=== PATIENT | female | born 1950 | race Asian ===

== ENCOUNTER → 2017-12-24 10:00 | Outpatient (CLI) | payer MEDICARE, OTHER, SELFPAY ==
[2017-12-24 10:30] LABS: Hematocrit 34.1 % (36-46); Hemoglobin 11.9 g/dL (12.0-16.0); Mean Corpuscular HGB Conc 34.8 % (30-36); Mean Corpuscular Hemoglobin 32.5 PG (26-34); Mean Corpuscular Volume 93.2 fL (80-100); Platelet Count 165 X10^3/uL (150-400); Red Blood Cell Count 3.65 X10^6/uL (4.0-5.2); Red Cell Distribution Width 16.4 % (11.6-14.8)
[2017-12-24 10:37] LABS: Add Manual Diff / Slide Review YES; White Blood Cell Count 1.8 X10^3/uL (4.5-11.0)
[2017-12-24 10:39] LABS: Alanine Aminotransferase 54 IU/L (9-52); Albumin 3.9 g/dL (3.5-5.0); Albumin Globulin Ratio 1.6 (1.0-2.8); Alkaline Phosphatase 47 U/L (38-126); Aspartate Aminotransferase 31 IU/L (14-36); BUN Creatinine Ratio 28.3 (6-22); Bilirubin Total 0.8 mg/dL (0.2-1.3); Calcium 9.1 mg/dL (8.4-10.2); Estimated Glomerular Filt Rate > 60.0 mL/min (>60); Globulin 2.5 g/dL (1.7-4.1); Glucose 152 mg/dL (80-110); HEMOLYSIS < 15 (0-50); Potassium 4.1 mmol/L (3.4-5.1); Sodium 136 mmol/L (137-145); Total Protein 6.4 g/dL (6.3-8.2)
[2017-12-24 11:09] LABS: Neutrophils Absolute Manual 1008 /uL (3000-5900); Total Cells Counted 50
[2017-12-24 11:10] LABS: Anisocytosis 1+; Ovalocytes 1+; Toxic Granulation Present
== END ==
PROVIDERS: PCP Internal Medicine; Visit Provider Internal Medicine Hematology & Oncology
DX: C71.9 Malignant neoplasm of brain, unspecified (principal)
CPT/HCPCS: 36415; 80053; 85025

== ENCOUNTER → 2017-12-31 10:57 | Outpatient (CLI) | payer MEDICARE, OTHER, SELFPAY ==
[2017-12-31 11:19] LABS: Add Manual Diff / Slide Review NO; Basophils Percent Auto 1.1 % (0-2); Eosinophils Percent Auto 0.2 % (2-4); Hematocrit 32.6 % (36-46); Hemoglobin 11.4 g/dL (12.0-16.0); Lymphocytes Percent Auto 23.6 % (25-40); Mean Corpuscular HGB Conc 34.9 % (30-36); Mean Corpuscular Hemoglobin 32.5 PG (26-34); Mean Corpuscular Volume 93.3 fL (80-100); Monocytes Percent Auto 12.9 % (3-14); Neutrophils Absolute Auto 2300 /uL (3000-5900); Neutrophils Percent Auto 62.2 % (50-75); Platelet Count 232 X10^3/uL (150-400); Red Blood Cell Count 3.49 X10^6/uL (4.0-5.2); Red Cell Distribution Width 17.6 % (11.6-14.8); White Blood Cell Count 3.6 X10^3/uL (4.5-11.0)
[2017-12-31 11:30] LABS: Alanine Aminotransferase 46 IU/L (9-52); Albumin 3.8 g/dL (3.5-5.0); Albumin Globulin Ratio 1.5 (1.0-2.8); Alkaline Phosphatase 42 U/L (38-126); Aspartate Aminotransferase 22 IU/L (14-36); Bilirubin Total 0.6 mg/dL (0.2-1.3); Calcium 9.2 mg/dL (8.4-10.2); Estimated Glomerular Filt Rate > 60.0 mL/min (>60); Globulin 2.6 g/dL (1.7-4.1); Glucose 125 mg/dL (80-110); HEMOLYSIS 17 (0-50); Potassium 4.2 mmol/L (3.4-5.1); Sodium 138 mmol/L (137-145); Total Protein 6.4 g/dL (6.3-8.2)
== END ==
PROVIDERS: Family Provider Internal Medicine; PCP Internal Medicine; Visit Provider Internal Medicine Hematology & Oncology
DX: C71.9 Malignant neoplasm of brain, unspecified (principal)
CPT/HCPCS: 36415; 80053; 85025

== ENCOUNTER → 2018-01-22 14:46 | Outpatient (CLI) | payer MEDICARE, OTHER, SELFPAY ==
[2018-01-22 15:03] LABS: Add Manual Diff / Slide Review NO; Basophils Percent Auto 0.5 % (0-2); Hematocrit 32.6 % (36-46); Lymphocytes Percent Auto 8.5 % (25-40); Mean Corpuscular HGB Conc 33.9 % (30-36); Mean Corpuscular Hemoglobin 32.5 PG (26-34); Mean Corpuscular Volume 95.9 fL (80-100); Monocytes Percent Auto 3.5 % (3-14); Neutrophils Absolute Auto 4500 /uL (3000-5900); Neutrophils Percent Auto 87.5 % (50-75); Platelet Count 282 X10^3/uL (150-400); Red Cell Distribution Width 17.8 % (11.6-14.8); White Blood Cell Count 5.2 X10^3/uL (4.5-11.0)
[2018-01-22 15:13] LABS: Alanine Aminotransferase 29 IU/L (9-52); Albumin 3.8 g/dL (3.5-5.0); Albumin Globulin Ratio 1.5 (1.0-2.8); Alkaline Phosphatase 47 U/L (38-126); Aspartate Aminotransferase 19 IU/L (14-36); BUN Creatinine Ratio 26.7 (6-22); Bilirubin Total 0.7 mg/dL (0.2-1.3); Blood Urea Nitrogen 16 mg/dL (7-17); Carbon Dioxide 30 mmol/L (22-32); Chloride 101 mmol/L (98-107); Estimated Glomerular Filt Rate > 60.0 mL/min (>60); Globulin 2.6 g/dL (1.7-4.1); Glucose 263 mg/dL (80-110); HEMOLYSIS < 15 (0-50); Potassium 4.5 mmol/L (3.4-5.1); Sodium 138 mmol/L (137-145); Total Protein 6.4 g/dL (6.3-8.2)
== END ==
PROVIDERS: Family Provider Internal Medicine; PCP Internal Medicine; Visit Provider Internal Medicine Hematology & Oncology
DX: C71.9 Malignant neoplasm of brain, unspecified (principal)
CPT/HCPCS: 36415; 80053; 85025

== ENCOUNTER 2018-02-02 14:30 | Outpatient (RCR) | payer MEDICARE, OTHER, SELFPAY ==
--- NOTE | 2018-01-01 08:45 | PT.OIE ---
Current Diagnoses Other abnormalities of gait and mobility (12/30/17) Dizziness and giddiness (12/30/17) Weakness (12/30/17) Provider Visit Care Team Role Provider Type Darby Barlow MD Attending Provider Physician Family Provider Primary Care Provider Specialty: Internal Medicine Address: [address] [place] [address], [id number] Email: Physical Therapy Initial Evaluation PT-OP-A Visit Information Start: 12/31/17 07:18 Freq: Status: Active Protocol: Document 12/30/17 14:30 AMB (Rec: 12/31/17 07:25 AMB [email or web address]) Out-Patient Physical Therapy Visit Information Visit Information Visit Type Initial Evaluation Visit Start Time 14:30 Visit Stop Time 15:30 Total Visit Minutes 60 Visit Number 1 Evaluation Information Evaluation Date 12/30/17 PT-OP-B Current Condition Start: 12/31/17 07:18 Freq: Status: Active Protocol: Document 12/30/17 14:30 AMB (Rec: 12/31/17 16:03 AMB [email or web address]) Current Condition History of Current Condition Onset Date 2017 Current Complaints Dizziness, L UE and LE numbness and weakness History of Current Condition The patient speaks Mandarin and attends PT with her . Phone interpreting for part of the session. 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 Since then she has had left sided numbness and weakness. She had dizziness before the brain tumor resection. She is currently on chemo to shrink the rest of the tumor. Personal Factors Other Personal Factors That May Effect Mandarin speaking only. Therapy/Recovery PT-OP-C Subjective Start: 12/31/17 07:18 Freq: Status: Active Protocol: Document 12/30/17 14:30 AMB (Rec: 12/31/17 16:03 AMB [email or web address]) OP-PT Subjective Patient Comments Patient Comments The patient denies pain, after extensive questioning she describes the dizziness as not spinning or lightheaded, but feeling wavy when she moves from sit to stand or when she is walking. Movement brings on the dizziness, turning her head or sitting up from bed can bring it on. R hand dominant. No falls in the last 6 months. The numbness is worst in the hand with fingers 3-5 being the most numb. Patient Questionnaires ABC- Activity Specific Balance Confidence Scale ABC Score 86 ABC Functional Impairment 1 to <20% Impaired (Score 81- 99) Dizziness Handicap Inventory DHI Score 20 DHI Functional Impairment 20 to 39% Impaired (Score 20- 39) PT-OP-D Balance Start: 12/31/17 07:18 Freq: Status: Active Protocol: Document 12/30/17 14:30 AMB (Rec: 12/31/17 16:11 AMB [email or web address]) Balance Tests Single Limb Standing Single Limb- Right unable Single Limb- Left unable Semi-Tandem Standing Semi-Tandem Standing Balance dizziness increased with eyes closed and headturns, but able to perform PT-OP-G Mobility & Gait Start: 12/31/17 07:18 Freq: Status: Active Protocol: Document 12/30/17 14:30 AMB (Rec: 12/31/17 16:09 AMB [email or web address]) OP Gait Assessment Comments Gait Comments The patient ambulates without AD. Good step length, but slightly WBOS and generally careful with movement. PT-OP-M Strength Start: 12/31/17 07:18 Freq: Status: Active Protocol: Document 12/30/17 14:30 AMB (Rec: 12/31/17 16:08 AMB [email or web address]) Hand Mobile Paramedical Examiner/Pinch Strength Hand Dominance Hand Dominance Right Hand Strength Right Mobile Paramedical Examiner (lbs) 50 Left Mobile Paramedical Examiner (lbs) 30 Hip Strength Hip Manual Muscle Testing Left Flexion (L2) 4 Good Extension (S1) 4 Good Abduction 4 Good Right Flexion (L2) 5 Normal Extension (S1) 5 Normal Abduction 5 Normal Knee Strength Knee Manual Muscle Testing Left Flexion (S2) 4 Good Extension (L3) 4 Good Right Flexion (S2) 4+ Good+ Extension (L3) 5 Normal Ankle/Foot Strength Ankle and Foot Manual Muscle Testing Left Dorsiflexion (L4) 4- Good- Plantarflexion (S1) 3+ Fair+ Right Dorsiflexion (L4) 4+ Good+ Plantarflexion (S1) 4+ Good+ PT-OP-O Vestibular Start: 12/31/17 07:18 Freq: Status: Active Protocol: Document 12/30/17 14:30 AMB (Rec: 12/31/17 07:29 AMB [email or web address]) Vestibular Assessment Visual Testing Smooth Pursuits Horizontal WFL Gaze Evoked Nystagmus With Fixation Negative Thrust Head Negative Positional Testing Dolores-Hallpike Negative Left Negative Right PT-OP-Q Treatments Start: 12/31/17 07:18 Freq: Status: Active Protocol: Document 12/30/17 14:30 AMB (Rec: 12/31/17 07:27 AMB [email or web address]) Therapeutic Exercises Supine Exercises 1 Supine Exercise Name SLR Reps/Minutes 10 Sitting Exercises 1 Sitting Exercise Name theraputty Side left Neuro Re-Education Treatment Balance Activities 1 Details stride stance EC Surface smooth Equipment corner Reps/Duration 30 seconds PT-OP-T Assessment and Plan Start: 12/31/17 07:18 Freq: Status: Active Protocol: Document 12/30/17 14:30 AMB (Rec: 12/31/17 16:16 AMB [email or web address]) Physical Therapy Assessment Rehab Potential Rehabilitation Potential Good Evaluation Complexity Number of Personal Factors/Comorbidities 1-2 Number of Body Systems Impaired 4 or More Clinical Presentation at Evaluation Evolving Impairments Impairments Balance Functional Mobility Gait Sensation Strength Goals 2 Impairment Weakness Short Term Goal (STG) The patient will show improved inpatient coder strength to 40# on her L hand. STG Duration 4 weeks Credit Collections Clerk Goal (LTG) The patient will show improved strength by lifting 15# from the floor to waist height with good body mechanics. LTG Duration 8 weeks 1 Impairment Dizziness Short Term Goal (STG) The patient will move from sit to stand without dizziness. STG Duration 4 weeks Credit Collections Clerk Goal (LTG) The patient will stand on one leg for 5 seconds without LOB. LTG Duration 8 weeks Assessment Summary Assessment The patient presents with left sided weakness and numbness which contribute to her feeling of being off balance during transfers and gait. She is hoping to strengthen her left side and be more confident with her balance. Her feeling of numbness plays a role in her impaired balance . Physical Therapy Plan Frequency and Duration Frequency of Treatment 1x/Week Duration of Treatment 8 weeks Plan of Care Start Date 12/30/17 Plan of Care End Date 02/25/18 Therapeutic Interventions Therapeutic Interventions Aquatic Therapy Balance Training Gait Training Home Exercise Program Manual Therapy Neuromuscular Re-education Self-Care/Home Management Therapeutic Activities Therapeutic Exercises Modalities Electric Stimulation Provider Signature Date
--- NOTE | 2018-01-01 08:46 | PT.OPPOC ---
Current Diagnoses Other abnormalities of gait and mobility (12/30/17) Dizziness and giddiness (12/30/17) Weakness (12/30/17) Provider Visit Care Team Role Provider Type Darby Barlow MD Attending Provider Physician Family Provider Primary Care Provider Specialty: Internal Medicine Address: [address] [place] [address], [facility] Email: Plan Of Care PT-OP-T Assessment and Plan Start: 12/31/17 07:18 Freq: Status: Active Protocol: Document 12/30/17 14:30 AMB (Rec: 12/31/17 16:16 AMB [email or web address]) Physical Therapy Assessment Rehab Potential Rehabilitation Potential Good Evaluation Complexity Number of Personal Factors/Comorbidities 1-2 Number of Body Systems Impaired 4 or More Clinical Presentation at Evaluation Evolving Impairments Impairments Balance Functional Mobility Gait Sensation Strength Goals 2 Impairment Weakness Short Term Goal (STG) The patient will show improved education consultant strength to 40# on her L hand. STG Duration 4 weeks Intermediate Goal (LTG) The patient will show improved strength by lifting 15# from the floor to waist height with good body mechanics. LTG Duration 8 weeks 1 Impairment Dizziness Short Term Goal (STG) The patient will move from sit to stand without dizziness. STG Duration 4 weeks Intermediate Goal (LTG) The patient will stand on one leg for 5 seconds without LOB. LTG Duration 8 weeks Assessment Summary Assessment The patient presents with left sided weakness and numbness which contribute to her feeling of being off balance during transfers and gait. She is hoping to strengthen her left side and be more confident with her balance. Her feeling of numbness plays a role in her impaired balance . Physical Therapy Plan Frequency and Duration Frequency of Treatment 1x/Week Duration of Treatment 8 weeks Plan of Care Start Date 12/30/17 Plan of Care End Date 02/25/18 Therapeutic Interventions Therapeutic Interventions Aquatic Therapy Balance Training Gait Training Home Exercise Program Manual Therapy Neuromuscular Re-education Self-Care/Home Management Therapeutic Activities Therapeutic Exercises Modalities Electric Stimulation Plan of Care Dates Plan of Care Start Date 12/30/17 Plan of Care End Date 02/25/18 Please Sign and Return: I have reviewed this Plan of Care and certify that the skilled therapy services above are required to meet the patient???s needs. Physician Signature Date Printed Name and Credentials
--- NOTE | 2018-01-21 07:17 | PT.OTN ---
Current Diagnoses Other abnormalities of gait and mobility (01/20/18) Dizziness and giddiness (01/20/18) Weakness (01/20/18) Physical Therapy Treatment Note PT-OP-A Visit Information Start: 12/31/17 07:18 Freq: Status: Active Protocol: Document 01/20/18 13:45 AMB (Rec: 01/20/18 16:16 AMB [email or web address]) Out-Patient Physical Therapy Visit Information Visit Information Visit Type Treatment Note Visit Start Time 14:00 Visit Stop Time 14:30 Total Visit Minutes 30 Visit Number 2 Evaluation Information Evaluation Date 12/30/17 PT-OP-B Current Condition Start: 12/31/17 07:18 Freq: Status: Active Protocol: Document 12/30/17 14:30 AMB (Rec: 12/31/17 16:03 AMB [email or web address]) Current Condition History of Current Condition Onset Date 2016 Current Complaints Dizziness, L UE and LE numbness and weakness History of Current Condition The patient speaks Mandarin and attends PT with her . Phone interpreting for part of the session. 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 Since then she has had left sided numbness and weakness. She had dizziness before the brain tumor resection. She is currently on chemo to shrink the rest of the tumor. Personal Factors Other Personal Factors That May Effect Mandarin speaking only. Therapy/Recovery PT-OP-C Subjective Start: 12/31/17 07:18 Freq: Status: Active Protocol: Document 01/20/18 13:45 AMB (Rec: 01/20/18 16:16 AMB [email or web address]) OP-PT Subjective Patient Comments Patient Comments The patient reports she has been doing her exercises. She continues to have a weak and numb left side. PT-OP-D Balance Start: 12/31/17 07:18 Freq: Status: Active Protocol: Document 12/30/17 14:30 AMB (Rec: 12/31/17 16:11 AMB [email or web address]) Balance Tests Single Limb Standing Single Limb- Right unable Single Limb- Left unable Semi-Tandem Standing Semi-Tandem Standing Balance dizziness increased with eyes closed and headturns, but able to perform PT-OP-G Mobility & Gait Start: 12/31/17 07:18 Freq: Status: Active Protocol: Document 12/30/17 14:30 AMB (Rec: 12/31/17 16:09 AMB [email or web address]) OP Gait Assessment Comments Gait Comments The patient ambulates without AD. Good step length, but slightly WBOS and generally careful with movement. PT-OP-M Strength Start: 12/31/17 07:18 Freq: Status: Active Protocol: Document 12/30/17 14:30 AMB (Rec: 12/31/17 16:08 AMB [email or web address]) Hand Electron Microscopist/Pinch Strength Hand Dominance Hand Dominance Right Hand Strength Right Electron Microscopist (lbs) 50 Left Electron Microscopist (lbs) 30 Hip Strength Hip Manual Muscle Testing Left Flexion (L2) 4 Good Extension (S1) 4 Good Abduction 4 Good Right Flexion (L2) 5 Normal Extension (S1) 5 Normal Abduction 5 Normal Knee Strength Knee Manual Muscle Testing Left Flexion (S2) 4 Good Extension (L3) 4 Good Right Flexion (S2) 4+ Good+ Extension (L3) 5 Normal Ankle/Foot Strength Ankle and Foot Manual Muscle Testing Left Dorsiflexion (L4) 4- Good- Plantarflexion (S1) 3+ Fair+ Right Dorsiflexion (L4) 4+ Good+ Plantarflexion (S1) 4+ Good+ PT-OP-O Vestibular Start: 12/31/17 07:18 Freq: Status: Active Protocol: Document 12/30/17 14:30 AMB (Rec: 12/31/17 07:29 AMB [email or web address]) Vestibular Assessment Visual Testing Smooth Pursuits Horizontal WFL Gaze Evoked Nystagmus With Fixation Negative Thrust Head Negative Positional Testing Dolores-Hallpike Negative Left Negative Right PT-OP-Q Treatments Start: 12/31/17 07:18 Freq: Status: Active Protocol: Document 01/20/18 13:45 AMB (Rec: 01/21/18 07:17 AMB [email or web address]) Therapeutic Exercises Supine Exercises 2 Supine Exercise Name air bike Reps/Minutes 30x2 1 Supine Exercise Name SLR Reps/Minutes 10 Sitting Exercises 2 Sitting Exercise Name bicep curl Resistance #3 theraband Standing Exercises 2 Standing Exercise Name lunges Reps/Minutes 2x10 Comments forward 1 Standing Exercise Name wall squat Reps/Minutes 15 x5 Neuro Re-Education Treatment Balance Activities 1 Details stride stance EC Surface smooth Equipment corner Reps/Duration 30 seconds PT-OP-T Assessment and Plan Start: 12/31/17 07:18 Freq: Status: Active Protocol: Document 01/20/18 13:45 AMB (Rec: 01/20/18 16:18 AMB [email or web address]) Physical Therapy Assessment Assessment Summary Assessment Pt habitually uses her R leg more with squats, needed physical and verbal cues for even weightbearing. Physical Therapy Plan Next Visit Focus/Plan Next Note Type Treatment Note Next Visit Plan Progress balance, UE strengthening HEP Please Sign and Return: I have reviewed this Plan of Care and certify that the skilled therapy services above are required to meet the patient?s needs. Physician Signature Date Printed Name and Credentials Clinical Instructor Signature Printed Name and Credentials
--- NOTE | 2018-01-27 14:54 | PT.OTN ---
Current Diagnoses Other abnormalities of gait and mobility (01/27/18) Dizziness and giddiness (01/27/18) Weakness (01/27/18) Physical Therapy Treatment Note PT-OP-A Visit Information Start: 12/31/17 07:18 Freq: Status: Active Protocol: Document 01/27/18 13:45 AMB (Rec: 01/27/18 14:51 AMB [email or web address]) Out-Patient Physical Therapy Visit Information Visit Information Visit Type Treatment Note Visit Start Time 14:00 Visit Stop Time 14:30 Total Visit Minutes 30 Visit Number 2 Evaluation Information Evaluation Date 12/30/17 PT-OP-B Current Condition Start: 12/31/17 07:18 Freq: Status: Active Protocol: Document 12/30/17 14:30 AMB (Rec: 12/31/17 16:03 AMB [email or web address]) Current Condition History of Current Condition Onset Date 2016 Current Complaints Dizziness, L UE and LE numbness and weakness History of Current Condition The patient speaks Mandarin and attends PT with her . Phone interpreting for part of the session. 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 Since then she has had left sided numbness and weakness. She had dizziness before the brain tumor resection. She is currently on chemo to shrink the rest of the tumor. Personal Factors Other Personal Factors That May Effect Mandarin speaking only. Therapy/Recovery PT-OP-C Subjective Start: 12/31/17 07:18 Freq: Status: Active Protocol: Document 01/27/18 13:45 AMB (Rec: 01/27/18 14:51 AMB [email or web address]) OP-PT Subjective Patient Comments Patient Comments The patient reports anterior hip pain on the left with walking, it has been a problem for awhile now (months). PT-OP-D Balance Start: 12/31/17 07:18 Freq: Status: Active Protocol: Document 12/30/17 14:30 AMB (Rec: 12/31/17 16:11 AMB [email or web address]) Balance Tests Single Limb Standing Single Limb- Right unable Single Limb- Left unable Semi-Tandem Standing Semi-Tandem Standing Balance dizziness increased with eyes closed and headturns, but able to perform PT-OP-G Mobility & Gait Start: 12/31/17 07:18 Freq: Status: Active Protocol: Document 12/30/17 14:30 AMB (Rec: 12/31/17 16:09 AMB [email or web address]) OP Gait Assessment Comments Gait Comments The patient ambulates without AD. Good step length, but slightly WBOS and generally careful with movement. PT-OP-M Strength Start: 12/31/17 07:18 Freq: Status: Active Protocol: Document 12/30/17 14:30 AMB (Rec: 12/31/17 16:08 AMB [email or web address]) Hand Truck Loader Overhead Crane/Pinch Strength Hand Dominance Hand Dominance Right Hand Strength Right Truck Loader Overhead Crane (lbs) 50 Left Truck Loader Overhead Crane (lbs) 30 Hip Strength Hip Manual Muscle Testing Left Flexion (L2) 4 Good Extension (S1) 4 Good Abduction 4 Good Right Flexion (L2) 5 Normal Extension (S1) 5 Normal Abduction 5 Normal Knee Strength Knee Manual Muscle Testing Left Flexion (S2) 4 Good Extension (L3) 4 Good Right Flexion (S2) 4+ Good+ Extension (L3) 5 Normal Ankle/Foot Strength Ankle and Foot Manual Muscle Testing Left Dorsiflexion (L4) 4- Good- Plantarflexion (S1) 3+ Fair+ Right Dorsiflexion (L4) 4+ Good+ Plantarflexion (S1) 4+ Good+ PT-OP-O Vestibular Start: 12/31/17 07:18 Freq: Status: Active Protocol: Document 12/30/17 14:30 AMB (Rec: 12/31/17 07:29 AMB [email or web address]) Vestibular Assessment Visual Testing Smooth Pursuits Horizontal WFL Gaze Evoked Nystagmus With Fixation Negative Thrust Head Negative Positional Testing Dolores-Hallpike Negative Left Negative Right PT-OP-Q Treatments Start: 12/31/17 07:18 Freq: Status: Active Protocol: Document 01/27/18 13:45 AMB (Rec: 01/27/18 14:51 AMB [email or web address]) Gym Equipment Therapeutic Ball 1 Exercise Details Seated march, LAQ, alternating UE flex Ball Size/Color 65 cm Comments Hernan for balance Therapeutic Exercises Supine Exercises 4 Supine Exercise Name IT band stretch Reps/Minutes 30x4 3 Supine Exercise Name hip flexor stretch Reps/Minutes 30x4 Prone Exercises 2 Prone Exercise Name quadruped hip/UE ext alternating Reps/Minutes 10 1 Prone Exercise Name quadruped hip extension Reps/Minutes 10 PT-OP-T Assessment and Plan Start: 12/31/17 07:18 Freq: Status: Active Protocol: Document 01/27/18 13:45 AMB (Rec: 01/27/18 14:51 AMB [email or web address]) Physical Therapy Assessment Goals 2 Impairment Weakness Short Term Goal (STG) The patient will show improved quality assurance supervisor body strength to 40# on her L hand. STG Duration 4 weeks Nitrate Operator Goal (LTG) The patient will show improved strength by lifting 15# from the floor to waist height with good body mechanics. LTG Duration 8 weeks 1 Impairment Dizziness Short Term Goal (STG) The patient will move from sit to stand without dizziness. STG Duration 4 weeks [facility] Goal (LTG) The patient will stand on one leg for 5 seconds without LOB. LTG Duration 8 weeks Assessment Summary Assessment Pt educated in hip flexor and possible stretches, she was very hesitant with seated ball exercises. Physical Therapy Plan Frequency and Duration Frequency of Treatment 1x/Week Duration of Treatment 8 weeks Plan of Care Start Date 12/30/17 Plan of Care End Date 02/25/18 Next Visit Focus/Plan Next Note Type Progress Note Next Visit Plan Progress balance, follow up on hip pain Please Sign and Return: I have reviewed this Plan of Care and certify that the skilled therapy services above are required to meet the patient?s needs. Physician Signature Date Printed Name and Credentials Clinical Instructor Signature Printed Name and Credentials
--- NOTE | 2018-02-03 09:22 | PT.OTN ---
Current Diagnoses Other abnormalities of gait and mobility (02/02/18) Dizziness and giddiness (02/02/18) Weakness (02/02/18) Physical Therapy Treatment Note PT-OP-A Visit Information Start: 12/31/17 07:18 Freq: Status: Active Protocol: Document 02/02/18 14:30 AMB (Rec: 02/03/18 07:37 AMB [id number]) Out-Patient Physical Therapy Visit Information Visit Information Visit Type Treatment Note Visit Start Time 14:30 Visit Stop Time 15:15 Total Visit Minutes 45 Visit Number 4 Evaluation Information Evaluation Date 12/30/17 PT-OP-B Current Condition Start: 12/31/17 07:18 Freq: Status: Active Protocol: Document 12/30/17 14:30 AMB (Rec: 12/31/17 16:03 AMB [email or web address]) Current Condition History of Current Condition Onset Date 2016 Current Complaints Dizziness, L UE and LE numbness and weakness History of Current Condition The patient speaks Mandarin and attends PT with her . Phone interpreting for part of the session. 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 Since then she has had left sided numbness and weakness. She had dizziness before the brain tumor resection. She is currently on chemo to shrink the rest of the tumor. Personal Factors Other Personal Factors That May Effect Mandarin speaking only. Therapy/Recovery PT-OP-C Subjective Start: 12/31/17 07:18 Freq: Status: Active Protocol: Document 02/02/18 14:30 AMB (Rec: 02/03/18 07:37 AMB [id number]) OP-PT Subjective Patient Comments Patient Comments The patient reports, through her , that she has been doing her exercises. PT-OP-D Balance Start: 12/31/17 07:18 Freq: Status: Active Protocol: Document 12/30/17 14:30 AMB (Rec: 12/31/17 16:11 AMB [email or web address]) Balance Tests Single Limb Standing Single Limb- Right unable Single Limb- Left unable Semi-Tandem Standing Semi-Tandem Standing Balance dizziness increased with eyes closed and headturns, but able to perform PT-OP-G Mobility & Gait Start: 12/31/17 07:18 Freq: Status: Active Protocol: Document 12/30/17 14:30 AMB (Rec: 12/31/17 16:09 AMB [email or web address]) OP Gait Assessment Comments Gait Comments The patient ambulates without AD. Good step length, but slightly WBOS and generally careful with movement. PT-OP-M Strength Start: 12/31/17 07:18 Freq: Status: Active Protocol: Document 12/30/17 14:30 AMB (Rec: 12/31/17 16:08 AMB [email or web address]) Hand Wildlife Protector/Pinch Strength Hand Dominance Hand Dominance Right Hand Strength Right Wildlife Protector (lbs) 50 Left Wildlife Protector (lbs) 30 Hip Strength Hip Manual Muscle Testing Left Flexion (L2) 4 Good Extension (S1) 4 Good Abduction 4 Good Right Flexion (L2) 5 Normal Extension (S1) 5 Normal Abduction 5 Normal Knee Strength Knee Manual Muscle Testing Left Flexion (S2) 4 Good Extension (L3) 4 Good Right Flexion (S2) 4+ Good+ Extension (L3) 5 Normal Ankle/Foot Strength Ankle and Foot Manual Muscle Testing Left Dorsiflexion (L4) 4- Good- Plantarflexion (S1) 3+ Fair+ Right Dorsiflexion (L4) 4+ Good+ Plantarflexion (S1) 4+ Good+ PT-OP-O Vestibular Start: 12/31/17 07:18 Freq: Status: Active Protocol: Document 12/30/17 14:30 AMB (Rec: 12/31/17 07:29 AMB [email or web address]) Vestibular Assessment Visual Testing Smooth Pursuits Horizontal WFL Gaze Evoked Nystagmus With Fixation Negative Thrust Head Negative Positional Testing Dolores-Hallpike Negative Left Negative Right PT-OP-Q Treatments Start: 12/31/17 07:18 Freq: Status: Active Protocol: Document 02/02/18 14:30 AMB (Rec: 02/03/18 09:20 AMB [email or web address]) Therapeutic Exercises Supine Exercises 3 Supine Exercise Name hip flexor stretch Reps/Minutes 30x4 1 Supine Exercise Name SLR Reps/Minutes 10 Sitting Exercises 3 Sitting Exercise Name cross body stretch 2 Sitting Exercise Name tricep extension Resistance #3 theraband Standing Exercises 2 Standing Exercise Name lunges Reps/Minutes 2x10 Comments forward Manual Therapy Treatment Soft Tissue Mobilization 1 Body Location L hip flexor Mobilization Type Sustained Pressure Neuro Re-Education Treatment Balance Activities 3 Details NBOS HT EO 2 Details foam NBOS Comments EO 1 Details stride stance EC Surface smooth Equipment corner Reps/Duration 30 seconds Vestibular Rehabilitation X1 Viewing Background plain Distance From Target arm length Speed slow Position NBOS, stride stance PT-OP-T Assessment and Plan Start: 12/31/17 07:18 Freq: Status: Active Protocol: Document 02/02/18 14:30 AMB (Rec: 02/03/18 09:20 AMB [email or web address]) Physical Therapy Assessment Goals 2 Impairment Weakness Short Term Goal (STG) The patient will show improved law tutor strength to 40# on her L hand. NOT MET STG Duration 4 weeks Long-Term Goal (LTG) The patient will show improved strength by lifting 15# from the floor to waist height with good body mechanics. MET LTG Duration 8 weeks 1 Impairment Dizziness Short Term Goal (STG) The patient will move from sit to stand without dizziness. PARTIALLy MET STG Duration 4 weeks Long-Term Goal (LTG) The patient will stand on one leg for 5 seconds without LOB. NOT MET LTG Duration 8 weeks Assessment Summary Assessment The patient continues to have dizziness, head turns do make this more apparent and she and her were instructed in a program to strengthen her left side and improve her baseline strength. Physical Therapy Plan Discharge Physical Therapy Discharge Reasons Patient Request Discharge Comments Pt feels she has enough exercises at this time to work on her balance and strength at home
== END 2018-07-13 10:59 ==
LOC: PHYS 14:30
PROVIDERS: Family Provider Internal Medicine; PCP Internal Medicine; Visit Provider Internal Medicine
DX: R53.1 Weakness (principal); R42 Dizziness and giddiness; R26.89 Other abnormalities of gait and mobility
CPT/HCPCS: 97110; 97112; 97162

== ENCOUNTER → 2018-03-24 16:42 | Outpatient (CLI) | payer MEDICARE, OTHER, SELFPAY ==
[2018-03-24 17:48] LABS: Add Manual Diff / Slide Review NO; Basophils Percent Auto 0.5 % (0-2); Eosinophils Percent Auto 0.4 % (2-4); Hematocrit 32.2 % (36-46); Hemoglobin 10.9 g/dL (12.0-16.0); Lymphocytes Percent Auto 12.3 % (25-40); Mean Corpuscular Hemoglobin 34.2 PG (26-34); Mean Corpuscular Volume 100.4 fL (80-100); Monocytes Percent Auto 6.2 % (3-14); Neutrophils Absolute Auto 4600 /uL (3000-5900); Neutrophils Percent Auto 80.6 % (50-75); Platelet Count 221 X10^3/uL (150-400); Red Blood Cell Count 3.21 X10^6/uL (4.0-5.2); Red Cell Distribution Width 15.8 % (11.6-14.8); White Blood Cell Count 5.7 X10^3/uL (4.5-11.0)
[2018-03-24 18:19] LABS: Alanine Aminotransferase 26 IU/L (9-52); Albumin 3.8 g/dL (3.5-5.0); Albumin Globulin Ratio 1.7 (1.0-2.8); Alkaline Phosphatase 40 U/L (38-126); Aspartate Aminotransferase 19 IU/L (14-36); BUN Creatinine Ratio 18.6 (6-22); Bilirubin Total 0.5 mg/dL (0.2-1.3); Blood Urea Nitrogen 13 mg/dL (7-17); Calcium 9.2 mg/dL (8.4-10.2); Carbon Dioxide 30 mmol/L (22-32); Chloride 102 mmol/L (98-107); Estimated Glomerular Filt Rate > 60.0 mL/min (>60); Globulin 2.2 g/dL (1.7-4.1); Glucose 205 mg/dL (80-110); HEMOLYSIS < 15 (0-50); Sodium 139 mmol/L (137-145)
== END ==
PROVIDERS: Family Provider Internal Medicine; PCP Internal Medicine; Visit Provider Nurse Practitioner
DX: C71.9 Malignant neoplasm of brain, unspecified (principal)
CPT/HCPCS: 36415; 80053; 85025

== ENCOUNTER → 2018-03-31 09:50 | Outpatient (CLI) | payer MEDICARE, OTHER, SELFPAY ==
[2018-03-31 10:37] LABS: Add Manual Diff / Slide Review NO; Basophils Percent Auto 0.2 % (0-2); Hematocrit 34.3 % (36-46); Hemoglobin 11.6 g/dL (12.0-16.0); Lymphocytes Percent Auto 5.8 % (25-40); Mean Corpuscular HGB Conc 33.8 % (30-36); Mean Corpuscular Hemoglobin 33.5 PG (26-34); Mean Corpuscular Volume 99.1 fL (80-100); Monocytes Percent Auto 3.6 % (3-14); Neutrophils Absolute Auto 7100 /uL (3000-5900); Neutrophils Percent Auto 89.4 % (50-75); Platelet Count 229 X10^3/uL (150-400); Red Blood Cell Count 3.46 X10^6/uL (4.0-5.2); Red Cell Distribution Width 15.9 % (11.6-14.8); White Blood Cell Count 7.9 X10^3/uL (4.5-11.0)
[2018-03-31 10:58] LABS: Alanine Aminotransferase 23 IU/L (9-52); Albumin 3.9 g/dL (3.5-5.0); Albumin Globulin Ratio 1.4 (1.0-2.8); Alkaline Phosphatase 37 U/L (38-126); Aspartate Aminotransferase 24 IU/L (14-36); BUN Creatinine Ratio 23.3 (6-22); Bilirubin Total 0.6 mg/dL (0.2-1.3); Blood Urea Nitrogen 14 mg/dL (7-17); Calcium 9.4 mg/dL (8.4-10.2); Carbon Dioxide 34 mmol/L (22-32); Chloride 101 mmol/L (98-107); Estimated Glomerular Filt Rate > 60.0 mL/min (>60); Globulin 2.7 g/dL (1.7-4.1); Glucose 142 mg/dL (80-110); HEMOLYSIS < 15 (0-50); Potassium 3.7 mmol/L (3.4-5.1); Sodium 142 mmol/L (137-145); Total Protein 6.6 g/dL (6.3-8.2)
== END ==
PROVIDERS: Family Provider Internal Medicine; PCP Internal Medicine; Visit Provider Nurse Practitioner
DX: C71.9 Malignant neoplasm of brain, unspecified (principal)
CPT/HCPCS: 36415; 80053; 85025

== ENCOUNTER → 2018-04-07 09:53 | Outpatient (CLI) | payer MEDICARE, OTHER, SELFPAY ==
[2018-04-07 10:24] LABS: Add Manual Diff / Slide Review NO; Basophils Percent Auto 0.5 % (0-2); Eosinophils Percent Auto 0.9 % (2-4); Hematocrit 33.1 % (36-46); Hemoglobin 11.4 g/dL (12.0-16.0); Lymphocytes Percent Auto 7.1 % (25-40); Mean Corpuscular HGB Conc 34.4 % (30-36); Mean Corpuscular Hemoglobin 33.3 PG (26-34); Mean Corpuscular Volume 96.9 fL (80-100); Monocytes Percent Auto 3.8 % (3-14); Neutrophils Absolute Auto 5700 /uL (3000-5900); Neutrophils Percent Auto 87.7 % (50-75); Platelet Count 196 X10^3/uL (150-400); Red Blood Cell Count 3.42 X10^6/uL (4.0-5.2); Red Cell Distribution Width 15.6 % (11.6-14.8); White Blood Cell Count 6.5 X10^3/uL (4.5-11.0)
[2018-04-07 11:25] LABS: Alanine Aminotransferase 28 IU/L (9-52); Albumin 3.8 g/dL (3.5-5.0); Albumin Globulin Ratio 1.5 (1.0-2.8); Alkaline Phosphatase 38 U/L (38-126); Aspartate Aminotransferase 24 IU/L (14-36); BUN Creatinine Ratio 21.7 (6-22); Bilirubin Total 0.8 mg/dL (0.2-1.3); Blood Urea Nitrogen 13 mg/dL (7-17); Calcium 9.2 mg/dL (8.4-10.2); Carbon Dioxide 32 mmol/L (22-32); Chloride 100 mmol/L (98-107); Estimated Glomerular Filt Rate > 60.0 mL/min (>60); Globulin 2.6 g/dL (1.7-4.1); Glucose 188 mg/dL (80-110); HEMOLYSIS < 15 (0-50); Potassium 3.7 mmol/L (3.4-5.1); Sodium 138 mmol/L (137-145); Total Protein 6.4 g/dL (6.3-8.2)
== END ==
PROVIDERS: Family Provider Internal Medicine; PCP Internal Medicine; Visit Provider Nurse Practitioner
DX: C71.9 Malignant neoplasm of brain, unspecified (principal)
CPT/HCPCS: 36415; 80053; 85025

== ENCOUNTER 2018-04-17 15:56 | Observation (INO) | payer MEDICARE, OTHER, SELFPAY ==
[2018-04-17 16:25] VITALS: BP 128/73; PULSE 84; RESP 18; TEMP 38.4; O2SAT 98; BMI 24.0
--- NOTE | 2018-04-17 16:36 | DI.RAD.S_ITS ---
PROCEDURE: XR CHEST 1V INDICATIONS: suspected sepsis TECHNIQUE: One view of the chest was acquired. COMPARISON: None. FINDINGS: Surgical changes and devices: None. Lungs and pleura: No pleural effusions or pneumothorax. Lungs are clear. Mediastinum: Mediastinal contours appear normal. Heart size is normal. Bones and chest wall: No suspicious bony lesions. Overlying soft tissues appear unremarkable. IMPRESSION: No acute cardiopulmonary findings. Dictated by: Callie Farmer M.D. on 04/17/2018 at 17:17 Approved by: Callie Farmer M.D. on 04/17/2018 at 17:18
--- NOTE | 2018-04-17 16:55 | ED.FEVER ---
HPI - Fever General Chief Complaint: Fever Stated Complaint: CHEMO PATIENT,FEVER,NOT FEELING WELL,RASH Time Seen by Provider: 04/17/18 16:46 Source: patient Mode of arrival: ambulatory Limitations: no limitations History of Present Illness HPI Narrative: Patient is a 67-year-old female currently receiving oral chemotherapy for brain tumor. She is followed down at [facility]. He has not been feeling well for the past couple of days and she is noted to have a temperature in the ED of 101. She denies any productive cough painful urination abdominal pain nausea vomiting or diarrhea. She does not take her temperature daily. She has not been on antibiotics recently or admitted to the hospital. She is followed in [place] by Dr. Cain SANCHEZ complaint: fever Related Data Allergies Allergy/AdvReac Type Severity Reaction Status Date / Time No Known Drug Allergies Allergy Verified 04/17/18 16:29 Review of Systems Review of Systems All systems reviewed & are unremarkable except as noted in HPI and below Constitutional Reports body ache(s), Reports chills, Reports fatigue and Reports fever(s) Eyes Denies loss of vision Cardiovascular Denies chest pain, Denies irregular heart rhythm, Denies lightheadedness, Denies palpitations, Denies dyspnea, Denies dyspnea on exertion and Denies orthopnea Respiratory Denies cough, Denies dyspnea, Denies dyspnea on exertion and Denies wheezing Gastrointestinal Gastrointestinal: Denies abdominal pain, Denies change in bowel habits, Denies diarrhea, Denies nausea and Denies vomiting Genitourinary Denies hematuria, Denies flank pain, Denies urinary incontinence and Denies urinary urgency Musculoskeletal Denies back pain, Denies muscle weakness, Denies numbness and Denies tingling Integumentary/Breasts Denies pruritus, Denies erythema, Denies rash and Denies wounds Neurologic Reports as per HPI, Denies focal weakness, Denies loss of vision, Denies memory loss, Denies numbness and Denies tingling Psychiatric Denies memory loss Endocrine Reports fatigue and Denies palpitations Allergic/Immunologic Denies wheezing PFSH Medical History Brain malignancy (Acute) Social History Smoking Status: Never smoker Exam Initial Vital Signs Initial Vital Signs: Vital Signs Temperature 101.1 F H 04/17/18 16:25 Pulse Rate 84 04/17/18 16:25 Respiratory Rate 18 04/17/18 16:25 Blood Pressure 128/73 04/17/18 16:25 Pulse Oximetry 98 04/17/18 16:25 GENERAL: Alert female does not appear toxic or septic and in [no acute] distress. HEENT: Head atraumatic,EOMI, pupils reactive, face symmetric, neck is supple no meningeal signs no JVD CARDIOVASCULAR: Regular rate and rhythm without murmurs, rubs or gallops. RESPIRATORY: Breath sounds equal bilaterally, no wheezes rales or rhonchi. ABDOMEN: Soft, nontender. Normoactive bowel sounds all 4 quadrants. No guarding or rebound. EXTREMITIES: Normal range of motion, no clubbing or edema. Neurovascularly intact NEUROLOGICAL: Alert and oriented x4.Normal gait and speech. Cranial nerves II through XII grossly intact. Group Home Counselor strength equal bilaterally moving all extremities SKIN: Warm, dry, no laceration, no petechiae, no rashes or lesions. Course Orders Ordered: ED Orders 04/17/18 16:36 XR chest 1V Stat 04/17/18 16:55 Complete Blood Count AUTO DIFF Stat Comprehensive Metabolic Panel Stat Lactate (Lactic Acid) Stat Lipase Stat Partial Thromboplastin Time Stat Procalcitonin Stat Prothrombin Time INR Stat 04/17/18 17:10 Urinalysis and Microscopic Stat 04/17/18 17:25 Blood Culture Stat 04/17/18 18:42 CT head/brain wo con Stat 04/17/18 19:25 US periph venous low extrem bi Stat Discontinued Medications Acetaminophen (Tylenol) 650 mg PO NOW ONE Stop: 04/17/18 16:57 Last Admin: 04/17/18 17:05 Dose: 650 mg Sodium Chloride (Normal Saline 0.9%) 1,000 mls @ 1,000 mls/hr IV BOLUS ONE Stop: 04/17/18 17:35 Last Infusion: 04/17/18 19:18 Dose: 0 mls/hr Admin: 04/17/18 17:03 Dose: 1,000 mls/hr Sodium Chloride (Normal Saline 0.9%) 1,000 mls @ 1,000 mls/hr IV BOLUS ONE Stop: 04/17/18 18:55 Vital Signs - 8 hr 04/17/18 16:25 04/17/18 17:05 04/17/18 18:28 Temperature 101.1 F H 101 F H 98.6 F Pulse Rate 84 Respiratory Rate 18 Blood Pressure 128/73 Blood Pressure [Left Arm] Pulse Oximetry 98 04/17/18 18:44 Temperature Pulse Rate 84 Respiratory Rate 18 Blood Pressure Blood Pressure [Left Arm] 134/87 Pulse Oximetry 96 MDM - Fever Lab Data Attestation: I reviewed the patient's lab results. Result diagrams: 04/17/18 16:55 04/17/18 16:55 Lab Results 04/17/18 04/17/18 04/17/18 Range/Units 16:55 16:55 16:55 WBC 3.4 L (4.5-11.0) X10^3/uL RBC 3.66 L (4.0-5.2) X10^6/uL Hgb 12.1 (12.0-16.0) g/dL Hct 35.2 L (36-46) % MCV 96.2 (80-100) fL MCH 33.1 (26-34) PG MCHC 34.4 (30-36) % RDW 15.4 H (11.6-14.8) % Plt Count 163 (150-400) X10^3/uL Neut % (Auto) 74.4 (50-75) % Lymph % (Auto) 12.4 L (25-40) % [place] % (Auto) 12.0 (3-14) % Eos % (Auto) 0.7 L (2-4) % Baso % (Auto) 0.5 (0-2) % Neut # (Auto) 2500 L (8368-5446) /uL PT 11.4 (10.1-12.7) SECONDS INR 1.1 (0.9-1.3) APTT 30 (26.4-36.2) SECONDS Sodium (137-145) mmol/L Potassium (3.4-5.1) mmol/L Chloride (98-107) mmol/L Carbon Dioxide (22-32) mmol/L BUN (7-17) mg/dL Creatinine (0.52-1.04) mg/dL Estimated GFR (>60) mL/min BUN/Creatinine Ratio (6-22) Glucose (80-110) mg/dL Lactate (0.7-2.1) mmol/L Calcium (8.4-10.2) mg/dL Total Bilirubin (0.2-1.3) mg/dL AST (14-36) IU/L ALT (9-52) IU/L Alkaline Phosphatase (38-126) U/L Total Protein (6.3-8.2) g/dL Albumin (3.5-5.0) g/dL Globulin (1.7-4.1) g/dL Albumin/Globulin Ratio (1.0-2.8) Lipase (23-300) U/L Procalcitonin < 0.05 (<0.5) ng/mL Urine Color Urine Appearance Urine pH (4.5-8.0) Ur Specific [place] (1.000-1.035) Urine Protein (Negative) Urine Glucose (UA) (Normal) g/dL Urine Ketones (NEGATIVE) Urine Occult Blood (Negative) Urine Nitrate (Negative) Urine Bilirubin (NEGATIVE) Urine Urobilinogen (0.2) E.U./dL Ur Leukocyte Esterase (NEGATIVE) Urine RBC (0-5/HPF) Urine WBC (0-5/HPF) Calcium Oxalate Crystal (None) Urine Bacteria (None) Urine Mucus (Negative) Ur Culture Indicated? Micro UA Comment 04/17/18 04/17/18 04/17/18 Range/Units 16:55 16:55 17:10 WBC (4.5-11.0) X10^3/uL RBC (4.0-5.2) X10^6/uL Hgb (12.0-16.0) g/dL Hct (36-46) % MCV (80-100) fL MCH (26-34) PG MCHC (30-36) % RDW (11.6-14.8) % Plt Count (150-400) X10^3/uL Neut % (Auto) (50-75) % Lymph % (Auto) (25-40) % [place] % (Auto) (3-14) % Eos % (Auto) (2-4) % Baso % (Auto) (0-2) % Neut # (Auto) (6321-9112) /uL PT (10.1-12.7) SECONDS INR (0.9-1.3) APTT (26.4-36.2) SECONDS Sodium 138 (137-145) mmol/L Potassium 4.0 (3.4-5.1) mmol/L Chloride 101 (98-107) mmol/L Carbon Dioxide 30 (22-32) mmol/L BUN 14 (7-17) mg/dL Creatinine 0.70 (0.52-1.04) mg/dL Estimated GFR > 60.0 (>60) mL/min BUN/Creatinine Ratio 20.0 (6-22) Glucose 146 H (80-110) mg/dL Lactate 0.9 (0.7-2.1) mmol/L Calcium 9.0 (8.4-10.2) mg/dL Total Bilirubin 1.2 (0.2-1.3) mg/dL AST 23 (14-36) IU/L ALT 22 (9-52) IU/L Alkaline Phosphatase 42 (38-126) U/L Total Protein 6.8 (6.3-8.2) g/dL Albumin 4.1 (3.5-5.0) g/dL Globulin 2.7 (1.7-4.1) g/dL Albumin/Globulin Ratio 1.5 (1.0-2.8) Lipase 47 (23-300) U/L Procalcitonin (<0.5) ng/mL Urine Color Yellow Urine Appearance Clear Urine pH 5.0 (4.5-8.0) Ur Specific [place] 1.025 (1.000-1.035) Urine Protein Negative (Negative) Urine Glucose (UA) Negative (Normal) g/dL Urine Ketones Trace H (NEGATIVE) Urine Occult Blood Trace-intact (Negative) Urine Nitrate Negative (Negative) Urine Bilirubin Negative (NEGATIVE) Urine Urobilinogen 0.2 (0.2) E.U./dL Ur Leukocyte Esterase Negative (NEGATIVE) Urine RBC 1-5/hpf (0-5/HPF) Urine WBC None seen (0-5/HPF) Calcium Oxalate Crystal Few H (None) Urine Bacteria None seen (None) Urine Mucus 1+ H (Negative) Ur Culture Indicated? Not Reportable Micro UA Comment Not Reportable Imaging Data Chest x-ray: Radiologist's impression: PROCEDURE: XR CHEST 1V INDICATIONS: suspected sepsis TECHNIQUE: One view of the chest was acquired. COMPARISON: None. FINDINGS: Surgical changes and devices: None. Lungs and pleura: No pleural effusions or pneumothorax. Lungs are clear. Mediastinum: Mediastinal contours appear normal. Heart size is normal. Bones and chest wall: No suspicious bony lesions. Overlying soft tissues appear unremarkable. IMPRESSION: No acute cardiopulmonary findings. Dictated by: Callie Farmer M.D. on 04/17/2018 at 17:17 MDM Narrative Medical decision making narrative: I spoke with Dr. King, Oncology, recommended because of steroids observation could be hiding infection, also very prone to DVT, recommended at least observation. Also when the patient gets fevers they often have exacerbation of their symptoms and become not functional. Dr. Ayon has graciously accepted this patient. 2 observation will monitor fever await blood cultures and check DVT Discharge Plan Departure Patient Disposition: Admitted as Observation Clinical Impression: Fever
[2018-04-17] MEDS: SODIUM CHLORIDE 0.9% 1,000 ML 1000 ML IV ×2 (17:03→19:30)
[2018-04-17 17:05] VITALS: TEMP 38.3
[2018-04-17] MEDS: ACETAMINOPHEN 325 MG TABLET 650 MG PO (17:05)
[2018-04-17 17:06] LABS: Add Manual Diff / Slide Review NO; Basophils Percent Auto 0.5 % (0-2); Eosinophils Percent Auto 0.7 % (2-4); Hematocrit 35.2 % (36-46); Hemoglobin 12.1 g/dL (12.0-16.0); Lymphocytes Percent Auto 12.4 % (25-40); Mean Corpuscular HGB Conc 34.4 % (30-36); Mean Corpuscular Hemoglobin 33.1 PG (26-34); Mean Corpuscular Volume 96.2 fL (80-100); Neutrophils Absolute Auto 2500 /uL (3000-5900); Neutrophils Percent Auto 74.4 % (50-75); Platelet Count 163 X10^3/uL (150-400); Red Blood Cell Count 3.66 X10^6/uL (4.0-5.2); Red Cell Distribution Width 15.4 % (11.6-14.8); White Blood Cell Count 3.4 X10^3/uL (4.5-11.0)
[2018-04-17 17:36] LABS: INR 1.1 (0.9-1.3); Prothrombin Time 11.4 SECONDS (10.1-12.7)
[2018-04-17 17:39] LABS: PTT Partial Thromboplastin Tim 30 SECONDS (26.4-36.2)
[2018-04-17 17:40] LABS: Lactate (Lactic Acid) 0.9 mmol/L (0.7-2.1)
[2018-04-17 17:41] LABS: Alanine Aminotransferase 22 IU/L (9-52); Albumin 4.1 g/dL (3.5-5.0); Albumin Globulin Ratio 1.5 (1.0-2.8); Alkaline Phosphatase 42 U/L (38-126); Aspartate Aminotransferase 23 IU/L (14-36); Bilirubin Total 1.2 mg/dL (0.2-1.3); Blood Urea Nitrogen 14 mg/dL (7-17); Carbon Dioxide 30 mmol/L (22-32); Chloride 101 mmol/L (98-107); Estimated Glomerular Filt Rate > 60.0 mL/min (>60); Globulin 2.7 g/dL (1.7-4.1); Glucose 146 mg/dL (80-110); HEMOLYSIS 16 (0-50); Lipase 47 U/L (23-300); Sodium 138 mmol/L (137-145); Total Protein 6.8 g/dL (6.3-8.2)
[2018-04-17 17:41] LABS: Bacteria Urine None Seen; WBC Urine None Seen (0-5/HPF)
[2018-04-17 17:45] LABS: Appearance Urine UA CLEAR; Bilirubin Urine UA NEGATIVE (NEGATIVE); Color Urine UA YELLOW; Glucose Urine UA NEGATIVE (Normal); Ketones Urine UA TRACE (NEGATIVE); Leukocyte Esterase Urine UA NEGATIVE (NEGATIVE); Nitrite Urine UA Negative (Negative); Occult Blood Urine UA TRACE-INTACT (Negative); Protein Urine UA NEGATIVE (Negative); Specific Gravity Urine UA 1.025 (1.000-1.035); Urobilinogen Urine UA 0.2 E.U./dL (0.2)
[2018-04-17 18:01] LABS: Calcium Oxalate Crystals Urine Few; Mucus Urine 1+ (Negative); RBC Urine 1-5/HPF (0-5/HPF)
[2018-04-17 18:01] LABS: Procalcitonin < 0.05 ng/mL (<0.5)
[2018-04-17 18:28] VITALS: TEMP 37
--- NOTE | 2018-04-17 18:42 | DI.CT.S_ITS ---
PROCEDURE: CT HEAD/BRAIN WO CON INDICATIONS: known brain cancer now with fever and worsening left weaknes TECHNIQUE: Noncontrast 4.5 mm thick angled axial sections acquired from the foramen magnum to the vertex, with coronal and sagittal reformats. For radiation dose reduction, the following was used: automated exposure control, adjustment of mA and/or kV according to patient size. COMPARISON: [facility], CT, HEAD WITHOUT CONTRAST, 10/14/2017, 6:20. FINDINGS: Image quality: Excellent. CSF spaces: Basal cisterns are patent. No extra-axial fluid collections. The ventricles are symmetric in size and shape. Brain: Postoperative changes are redemonstrated within the right parietal lobe. Parenchymal calcification of the margins of the operative bed is similar in appearance to before. Vasogenic edema is redemonstrated along the margins of the operative bed as well. There is slightly increased extraocular dilatation of the right lateral ventricle when compared with the prior study consistent with evolution of the postoperative changes. No new mass lesions. No midline shift. No intracranial hemorrhage. Skull and face: Patient is status post left parietal craniotomy. Calvarium and visualized facial bones appear intact, without suspicious lesions. Sinuses: Visualized sinuses and mastoids are clear. IMPRESSION: Evolution of the right parietal postoperative changes when compared with the study dated 10/14/17. No acute intracranial findings. Dictated by: Callie Farmer M.D. on 04/17/2018 at 19:29 Approved by: Callie Farmer M.D. on 04/17/2018 at 19:33
[2018-04-17 18:44] VITALS: BP 134/87; PULSE 84; RESP 18; O2SAT 96
--- NOTE | 2018-04-17 19:25 | DI.US.S_ITS ---
PROCEDURE: US PERIPH VENOUS LOW EXTREM BI INDICATIONS: EDEMA TECHNIQUE: Real-time imaging, as well as color and pulse Doppler interrogation, were performed of the deep veins of both legs from the inguinal ligament to the popliteal fossa. COMPARISON: None. FINDINGS: The deep veins are normally compressible, and free of intraluminal thrombus. Color and pulse Doppler demonstrate normal phasic intravascular flow. There is normal augmentation response to distal compression maneuver. IMPRESSION: No deep vein thrombosis of the bilateral lower extremities. Dictated by: Callie Farmer M.D. on 04/17/2018 at 21:01 Approved by: Callie Farmer M.D. on 04/17/2018 at 21:01
[2018-04-17 20:04] VITALS: BMI 24.0
[2018-04-17 20:30] VITALS: BP 144/77; PULSE 72; RESP 16; TEMP 36.8; O2SAT 97
--- NOTE | 2018-04-17 20:59 | PC.NURSE ---
Pt to acute care from ER. Transferred via stretcher and slider board to bed. Pt only speaks [place] Mandarin. Daughter at bedside assisting with admission. Pt alert/oriented. Reports 3/10 pain if rash on right thigh is touched. Pt oriented to call light. Daughter reports she will stay overnight after she runs home to get food/pt med list. [employer] Associate phone in room. U/S done at bedside.
[2018-04-17] MEDS: DOCUSATE 100 MG CAPSULE PO (22:14)
[2018-04-17 23:59] VITALS: BP 159/82; PULSE 83; RESP 16; TEMP 37; O2SAT 96
[2018-04-18] VITALS (10 sets, daily range): BP systolic 117–142; BP diastolic 71–74; PULSE 74–87; RESP 15–16; TEMP 36.5–38; O2SAT 94–97
[2018-04-18] MEDS: ACETAMINOPHEN 325 MG TABLET 650 MG PO ×2 (05:27→14:13)
[2018-04-18 05:49] LABS: Add Manual Diff / Slide Review NO; Basophils Percent Auto 0.3 % (0-2); Eosinophils Percent Auto 0.4 % (2-4); Hematocrit 33.8 % (36-46); Hemoglobin 11.6 g/dL (12.0-16.0); Lymphocytes Percent Auto 11.9 % (25-40); Mean Corpuscular HGB Conc 34.4 % (30-36); Mean Corpuscular Volume 95.9 fL (80-100); Monocytes Percent Auto 9.4 % (3-14); Neutrophils Absolute Auto 3700 /uL (3000-5900); Platelet Count 154 X10^3/uL (150-400); Red Blood Cell Count 3.53 X10^6/uL (4.0-5.2); Red Cell Distribution Width 14.8 % (11.6-14.8); White Blood Cell Count 4.8 X10^3/uL (4.5-11.0)
[2018-04-18 06:00] LABS: Alanine Aminotransferase 21 IU/L (9-52); Albumin 3.7 g/dL (3.5-5.0); Albumin Globulin Ratio 1.4 (1.0-2.8); Alkaline Phosphatase 41 U/L (38-126); Aspartate Aminotransferase 18 IU/L (14-36); BUN Creatinine Ratio 18.3 (6-22); Bilirubin Total 0.8 mg/dL (0.2-1.3); Blood Urea Nitrogen 11 mg/dL (7-17); Calcium 8.4 mg/dL (8.4-10.2); Carbon Dioxide 25 mmol/L (22-32); Chloride 105 mmol/L (98-107); Estimated Glomerular Filt Rate > 60.0 mL/min (>60); Globulin 2.7 g/dL (1.7-4.1); Glucose 158 mg/dL (80-110); HEMOLYSIS < 15 (0-50); Sodium 138 mmol/L (137-145); Total Protein 6.4 g/dL (6.3-8.2)
[2018-04-18] MEDS: PANTOPRAZOLE 20 MG TABLET PO (06:55)
[2018-04-18] MEDS: DOCUSATE 100 MG CAPSULE 200 MG PO (08:40)
[2018-04-18] MEDS: DEXAMETHASONE 1 MG TABLET 0.5 MG PO (08:40)
[2018-04-18] MEDS: LOSARTAN 25 MG TABLET PO (08:40)
[2018-04-18] MEDS: METOPROLOL ER 50 MG TABLET PO (08:40)
[2018-04-18] MEDS: ENOXAPARIN 40 MG/0.4 ML SYRINGE SUBCUT (08:40)
[2018-04-18] MEDS: SENNOSIDES 8.6 MG TABLET 17.2 MG PO (08:41)
[2018-04-18] MEDS: SODIUM CHLORIDE 0.9% FLUSH 10 ML IV (08:41)
--- NOTE | 2018-04-18 09:15 | P.HP_ITS ---
History of Present Illness Date Patient Seen: 04/18/18 Time Patient Seen: 06:13 Chief complaint: CHEMO PATIENT,FEVER,NOT FEELING WELL,RASH Narrative: Patient is a 67 years of age female with an unfortunate diagnosis of glioblastoma multiforme brain tumor diagnosed in 2003. Patient underwent craniotomy 2003 for resection involving the right brain region. Patient had recurrence of this brain tumor as expected in 2014 and underwent a 2nd craniotomy which rendered patient with a left hemiparesis and left sided sensory perception loss after the 2nd craniotomy. Patient seemed to do reasonably well until 2015 2016. Patient is now noted to have recurrence again of the GBM cancer in brain. No further craniotomy resection is possible or permitted. Patient has received some chemotherapy and is on dexamethasone steroid therapy day daily. Patient presents to the hospital with a fever. Fortunately her absolute poly count was 2500. ER physician tried make arrangement for patient to be discharged after receiving Tylenol. She contacted the patient's oncologist out of town who recommended patient admitted overnight for monitoring. He also had a concern in view of the fever that she might have had a blood clot. A Doppler ultrasound of lower extremity was ordered as the patient was admitted. Blood cultures were obtained on admission as well. On further questioning patient has had some weight loss in the recent weeks perhaps month. She is on a steroid medication without GI protective measure according to the home medication list. I also spoke to the daughter at bedside directly who does not recall any sort of medication to protect the patient's tummy. Patient is on an antiemetic therapy though. Patient seems to have a queasy type stomach and not necessarily nauseous. This may be cause for the weight loss recently. There may be a bit of mild mood disturbance dealing with this surgically incurable cancer. Patient History Medical History Brain malignancy (Acute) Comment: PAST MEDICAL HISTORY Diagnosis of glioblastoma multiforme 2003 status post craniotomy 2003 and 2014. Currently on chemotherapy Fever on admission with unclear etiology Chronic steroid therapy Diabetes type 2 uncontrolled on admission Dyspepsia with recent weight loss Hyperlipidemia History of hypertension SOCIAL HISTORY Patient lives with her locally. Her daughter lives approximately 2 hr away.\ Patient is nonsmoker nonalcoholic PAST SURGICAL HISTORY Craniotomy 2003 and 2014 FAMILY HISTORY Brother and sister with diabetes. No history of cancer in family members Family & Social History Social History: household members spouse Prior Living Arrangements House Safety & Behavioral: Feels Safe in Current Yes Environment Been Physically Hurt or No Threatened By a Person Tobacco & Substance use: Smoking Status Never smoker alcohol intake never alcohol intake frequency 0-2 drinks per day Substance Use Type does not use Meds Home Medications Medication Instructions Recorded Confirmed Type dexamethasone 0.5 mg PO QAM 04/17/18 04/17/18 History losartan 25 mg PO DAILY 04/17/18 04/17/18 History melatonin 5 mg PO BEDTIME PRN 04/17/18 04/17/18 History metoprolol succinate 50 mg PO DAILY 04/17/18 04/17/18 History ondansetron 8 mg PO Q8HR PRN 04/17/18 04/17/18 History procarbazine 50 mg PO DAILY 04/17/18 04/17/18 History rosuvastatin 5 mg PO QPM 04/17/18 04/17/18 History sennosides-docusate sodium 2 tab PO BEDTIME PRN 04/17/18 04/17/18 History [Senna-S] valacyclovir 1,000 mg PO Q8HR 04/17/18 04/17/18 History Allergies Allergy/AdvReac Type Severity Reaction Status Date / Time No Known Drug Allergies Allergy Verified 04/17/18 16:29 Review of Systems Review of Systems A 10 point system reviewed with patient and the daughter at bedside and was negative except for the complaint of the fever and with the dyspepsia and weight loss Exam Vital Signs (past 8 hours): - 04/18/18 05:27 04/18/18 05:54 04/18/18 06:37 Temperature 100.4 F H 100.4 F H 98.2 F Pulse Rate 87 Respiratory Rate 15 Blood Pressure 138/73 Pulse Oximetry 94 04/18/18 07:55 Temperature 97.7 F Pulse Rate 74 Respiratory Rate 16 Blood Pressure 117/74 Pulse Oximetry 97 Oxygen Delivery Method Room Air Narrative Exam Narrative: General appearance patient is awake and alert no apparent distress at rest patient is Croatian speaking only. Psychiatric well-oriented mood is pleasant cooperative patient is smiling affect appropriate Skin no rashes or lesions nonjaundiced turgor normal Eyes pupils are equal round and reactive to light Ears nose and throat hearing grossly intact contusion is fair to good no septum to midline no bleeding Respiratory clear to auscultation with good Airflow no wheezes no crackles Cardiovascular regular rate rhythm no murmurs +3 pulses to extremities PMI nondisplaced Gastrointestinal soft nontender positive bowel sounds no distension no guarding no masses no bruits Neurologic no focal neurologic changes cranial nerves 2-12 grossly intact Musculoskeletal motor strength 5/5 no clubbing range of motion normal Objective Labs Result Diagrams: 04/18/18 05:24 04/18/18 05:24 Labs: Laboratory Results - last 24 hr 04/17/18 04/17/18 04/17/18 16:55 16:55 16:55 WBC 3.4 L RBC 3.66 L Hgb 12.1 Hct 35.2 L MCV 96.2 MCH 33.1 MCHC 34.4 RDW 15.4 H Plt Count 163 Neut % (Auto) 74.4 Lymph % (Auto) 12.4 L [place] % (Auto) 12.0 Eos % (Auto) 0.7 L Baso % (Auto) 0.5 Neut # (Auto) 2500 L PT 11.4 INR 1.1 APTT 30 Sodium Potassium Chloride Carbon Dioxide BUN Creatinine Estimated GFR BUN/Creatinine Ratio Glucose Lactate Calcium Total Bilirubin AST ALT Alkaline Phosphatase Total Protein Albumin Globulin Albumin/Globulin Ratio Lipase Procalcitonin < 0.05 Urine Color Urine Appearance Urine pH Ur Specific [place] Urine Protein Urine Glucose (UA) Urine Ketones Urine Occult Blood Urine Nitrate Urine Bilirubin Urine Urobilinogen Ur Leukocyte Esterase Urine RBC Urine WBC Calcium Oxalate Crystal Urine Bacteria Urine Mucus Ur Culture Indicated? Micro UA Comment 04/17/18 04/17/18 04/17/18 16:55 16:55 17:10 WBC RBC Hgb Hct MCV MCH MCHC RDW Plt Count Neut % (Auto) Lymph % (Auto) [place] % (Auto) Eos % (Auto) Baso % (Auto) Neut # (Auto) PT INR APTT Sodium 138 Potassium 4.0 Chloride 101 Carbon Dioxide 30 BUN 14 Creatinine 0.70 Estimated GFR > 60.0 BUN/Creatinine Ratio 20.0 Glucose 146 H Lactate 0.9 Calcium 9.0 Total Bilirubin 1.2 AST 23 ALT 22 Alkaline Phosphatase 42 Total Protein 6.8 Albumin 4.1 Globulin 2.7 Albumin/Globulin Ratio 1.5 Lipase 47 Procalcitonin Urine Color Yellow Urine Appearance Clear Urine pH 5.0 Ur Specific [place] 1.025 Urine Protein Negative Urine Glucose (UA) Negative Urine Ketones Trace H Urine Occult Blood Trace-intact Urine Nitrate Negative Urine Bilirubin Negative Urine Urobilinogen 0.2 Ur Leukocyte Esterase Negative Urine RBC 1-5/hpf Urine WBC None seen Calcium Oxalate Crystal Few H Urine Bacteria None seen Urine Mucus 1+ H Ur Culture Indicated? Not Reportable Micro UA Comment Not Reportable 04/18/18 04/18/18 05:24 05:24 WBC 4.8 RBC 3.53 L Hgb 11.6 L Hct 33.8 L MCV 95.9 MCH 33.0 MCHC 34.4 RDW 14.8 Plt Count 154 Neut % (Auto) 78.0 H Lymph % (Auto) 11.9 L [place] % (Auto) 9.4 Eos % (Auto) 0.4 L Baso % (Auto) 0.3 Neut # (Auto) 3700 PT INR APTT Sodium 138 Potassium 4.0 Chloride 105 Carbon Dioxide 25 BUN 11 Creatinine 0.60 Estimated GFR > 60.0 BUN/Creatinine Ratio 18.3 Glucose 158 H Lactate Calcium 8.4 Total Bilirubin 0.8 AST 18 ALT 21 Alkaline Phosphatase 41 Total Protein 6.4 Albumin 3.7 Globulin 2.7 Albumin/Globulin Ratio 1.4 Lipase Procalcitonin Urine Color Urine Appearance Urine pH Ur Specific [place] Urine Protein Urine Glucose (UA) Urine Ketones Urine Occult Blood Urine Nitrate Urine Bilirubin Urine Urobilinogen Ur Leukocyte Esterase Urine RBC Urine WBC Calcium Oxalate Crystal Urine Bacteria Urine Mucus Ur Culture Indicated? Micro UA Comment Assessment & Plan Plan: Assessment/Plan Narrative: 1. History of glioblastoma multiforme brain cancer This was diagnosed 2003. Patient has had a craniotomy in 2003 as well as in 2014 No further surgical resection of the brain is contemplated are planned. Prognosis is poor. The daughter at bedside notes patient already has progression of the cancer noted by specialist Patient on steroid therapy daily to combat the potential for cerebral swelling. 2. Chronic steroid therapy Will provide GI protective medication to take daily such as omeprazole 40 mg each morning at discharge. In-hospital will provide Protonix 40 mg each morning Note risk for immune suppression with the chronic steroid therapy as well as increasing glucose levels 3. Diabetes type 2 uncontrolled This may be related to the steroid therapy provided. Will add on metformin at 500 mg b.i.d.. Hemoglobin A1c is pending 4. Fever with unclear etiology Patient response to the Tylenol provided. Blood cultures are negative for growth urine is negative chest x-ray negative No source for infection identified 5. Dyspepsia and weight loss Patient on chemotherapy agents with antiemetic provided. Patient also on steroid therapy daily without GI protective med Hopefully adding on the PPI will provide added support in a meaningful way and perhaps patient's diet might improve. Time Spent With Patient Time with patient: Greater than 35 minutes (65 min) Quality VTE Deep Vein Thrombosis/Pulmonary Embolism Present on Admission: No
[2018-04-18 09:29] LABS: Hemoglobin A1C% w Est Avg Glu 6.8 % (4.0-6.0)
[2018-04-18] MEDS: METFORMIN HCL 500 MG TABLET PO (11:38)
--- NOTE | 2018-04-18 13:57 | P.DS_ITS ---
History of Present Illness Date Patient Seen: 04/18/18 Time Patient Seen: 13:57 Chief complaint: CHEMO PATIENT,FEVER,NOT FEELING WELL,RASH Narrative: Patient is a 67 years of age female with an unfortunate diagnosis of glioblastoma multiforme brain tumor diagnosed in 2003. Patient underwent craniotomy 2003 for resection involving the right brain region. Patient had recurrence of this brain tumor as expected in 2014 and underwent a 2nd craniotomy which rendered patient with a left hemiparesis and left sided sensory perception loss after the 2nd craniotomy. Patient seemed to do reasonably well until 2015 2016. Patient is now noted to have recurrence again of the GBM cancer in brain. No further craniotomy resection is possible or permitted. Patient has received some chemotherapy and is on dexamethasone steroid therapy day daily. Patient presents to the hospital with a fever. Fortunately her absolute poly count was 2500. ER physician tried make arrangement for patient to be discharged after receiving Tylenol. She contacted the patient's oncologist out of town who recommended patient admitted overnight for monitoring. He also had a concern in view of the fever that she might have had a blood clot. A Doppler ultrasound of lower extremity was ordered as the patient was admitted. Blood cultures were obtained on admission as well. On further questioning patient has had some weight loss in the recent weeks perhaps month. She is on a steroid medication without GI protective measure according to the home medication list. I also spoke to the daughter at bedside directly who does not recall any sort of medication to protect the patient's tummy. Patient is on an antiemetic therapy though. Patient seems to have a queasy type stomach and not necessarily nauseous. This may be cause for the weight loss recently. There may be a bit of mild mood disturbance dealing with this surgically incurable cancer. Discharge Providers Date of admission: 04/17/18 19:31 Primary care physician: Darby Barlow MD Consults: 04/17/18 20:18 Consult to Dietitian, Adult Routine Comment: Reason For Exam: weight loss/diabetic/chemo restrictions Consult to Locomotive Electrician Routine Comment: Discharge provider: Salty Ayon MD Summary Discharge Diagnosis: 1. History of glioblastoma multiforme brain cancer 2. Chronic steroid therapy 3. Diabetes type 2 uncontrolled 4. Fever with unclear etiology 5. Dyspepsia and weight loss Hospital Course: History of glioblastoma multiforme brain cancer This was diagnosed 2003. Patient has had a craniotomy in 2003 as well as in 2014 No further surgical resection of the brain is contemplated are planned. Prognosis is poor. The daughter at bedside notes patient already has progression of the cancer noted by specialist Patient on steroid therapy daily to combat the potential for cerebral swelling. Chronic steroid therapy so Will provide GI protective medication to take daily such as omeprazole 40 mg each morning at discharge. In-hospital provided Protonix 40 mg each morning Diabetes type 2 uncontrolledThis may be related to the steroid therapy provided. Hemoglobin A1c was 6.8% Fever with unclear etiology Patient responsed to the Tylenol provided. Blood cultures were negative for growth. urine is negative chest. x-ray negative. No source for infection identified Dyspepsia and weight loss noted prior to admission Patient on chemotherapy agents in recent past with antiemetic provided. Patient also on steroid therapy daily without GI protective med Hopefully adding on the PPI will provide added support in a meaningful way and perhaps patient's diet might improve. Status at Discharge Cognitive/behavioral status at discharge: Awake and alert no apparent distress well oriented Functional status at discharge: independent ambulation Time Spent with Patient Greater than 30 minutes (45 min) Exam Vital Signs (past 8 hours): - 04/18/18 06:37 04/18/18 07:55 04/18/18 12:00 Temperature 98.2 F 97.7 F 98.7 F Pulse Rate 74 80 Respiratory Rate 16 16 Blood Pressure 117/74 133/71 Pulse Oximetry 97 96 Oxygen Delivery Method Room Air Narrative Exam Narrative: Awake and alert no apparent distress well oriented Respiratory clear to auscultation with good air flow Cardiovascular regular rate rhythm no murmurs GI is soft nontender positive bowel sounds no epigastric tenderness no right upper quadrant tenderness to palpation noted Neurologic no focal neurologic changes cranial nerves 2-12 grossly intact Objective Labs Result Diagrams: 04/18/18 05:24 04/18/18 05:24 Labs: Laboratory Results - last 24 hr 04/17/18 04/17/18 04/17/18 16:55 16:55 16:55 WBC 3.4 L RBC 3.66 L Hgb 12.1 Hct 35.2 L MCV 96.2 MCH 33.1 MCHC 34.4 RDW 15.4 H Plt Count 163 Neut % (Auto) 74.4 Lymph % (Auto) 12.4 L [place] % (Auto) 12.0 Eos % (Auto) 0.7 L Baso % (Auto) 0.5 Neut # (Auto) 2500 L PT 11.4 INR 1.1 APTT 30 Sodium Potassium Chloride Carbon Dioxide BUN Creatinine Estimated GFR BUN/Creatinine Ratio Glucose Hemoglobin A1c Lactate Calcium Total Bilirubin AST ALT Alkaline Phosphatase Total Protein Albumin Globulin Albumin/Globulin Ratio Lipase Procalcitonin < 0.05 Urine Color Urine Appearance Urine pH Ur Specific [place] Urine Protein Urine Glucose (UA) Urine Ketones Urine Occult Blood Urine Nitrate Urine Bilirubin Urine Urobilinogen Ur Leukocyte Esterase Urine RBC Urine WBC Calcium Oxalate Crystal Urine Bacteria Urine Mucus Ur Culture Indicated? Micro UA Comment 04/17/18 04/17/18 04/17/18 16:55 16:55 17:10 WBC RBC Hgb Hct MCV MCH MCHC RDW Plt Count Neut % (Auto) Lymph % (Auto) [place] % (Auto) Eos % (Auto) Baso % (Auto) Neut # (Auto) PT INR APTT Sodium 138 Potassium 4.0 Chloride 101 Carbon Dioxide 30 BUN 14 Creatinine 0.70 Estimated GFR > 60.0 BUN/Creatinine Ratio 20.0 Glucose 146 H Hemoglobin A1c Lactate 0.9 Calcium 9.0 Total Bilirubin 1.2 AST 23 ALT 22 Alkaline Phosphatase 42 Total Protein 6.8 Albumin 4.1 Globulin 2.7 Albumin/Globulin Ratio 1.5 Lipase 47 Procalcitonin Urine Color Yellow Urine Appearance Clear Urine pH 5.0 Ur Specific [place] 1.025 Urine Protein Negative Urine Glucose (UA) Negative Urine Ketones Trace H Urine Occult Blood Trace-intact Urine Nitrate Negative Urine Bilirubin Negative Urine Urobilinogen 0.2 Ur Leukocyte Esterase Negative Urine RBC 1-5/hpf Urine WBC None seen Calcium Oxalate Crystal Few H Urine Bacteria None seen Urine Mucus 1+ H Ur Culture Indicated? Not Reportable Micro UA Comment Not Reportable 04/18/18 04/18/18 04/18/18 05:24 05:24 05:24 WBC 4.8 RBC 3.53 L Hgb 11.6 L Hct 33.8 L MCV 95.9 MCH 33.0 MCHC 34.4 RDW 14.8 Plt Count 154 Neut % (Auto) 78.0 H Lymph % (Auto) 11.9 L [place] % (Auto) 9.4 Eos % (Auto) 0.4 L Baso % (Auto) 0.3 Neut # (Auto) 3700 PT INR APTT Sodium 138 Potassium 4.0 Chloride 105 Carbon Dioxide 25 BUN 11 Creatinine 0.60 Estimated GFR > 60.0 BUN/Creatinine Ratio 18.3 Glucose 158 H Hemoglobin A1c 6.8 H Lactate Calcium 8.4 Total Bilirubin 0.8 AST 18 ALT 21 Alkaline Phosphatase 41 Total Protein 6.4 Albumin 3.7 Globulin 2.7 Albumin/Globulin Ratio 1.4 Lipase Procalcitonin Urine Color Urine Appearance Urine pH Ur Specific [place] Urine Protein Urine Glucose (UA) Urine Ketones Urine Occult Blood Urine Nitrate Urine Bilirubin Urine Urobilinogen Ur Leukocyte Esterase Urine RBC Urine WBC Calcium Oxalate Crystal Urine Bacteria Urine Mucus Ur Culture Indicated? Micro UA Comment Discharge Plan Discharge Plan Patient Disposition: Home Provider Discharge Instructions Diet: Diet as Tolerated Skin/Wound/Dressing Care Report to your healthcare provider any signs of infection, such as:: night sweats, increased pain and unusual drainage Discharge Data Primary Care Provider: Darby Barlow Attending Provider: Salty Ayon Admit Date/Time: 04/17/18 19:31 Quality VTE Deep Vein Thrombosis/Pulmonary Embolism Present on Admission: No
[2018-04-18] MEDS: valACYclovir 500 MG TABLET 1000 MG PO (14:13)
--- NOTE | 2018-04-18 14:59 | PC.NURSE ---
Patient's daughter called for nurse saying that patient felt like she had a fever again. BP/HR stable, temperature 99.9-100.1 noted and reported to MD. Dr. Ayon states patient is still able to be discharged. Patient given tylenol as ordered prn and fleece jacket and heavy blankets removed.
--- NOTE | 2018-04-18 15:17 | PC.NURSE ---
Patient ambulating in halls with her daughter at this time. Update given to evening shift nurse, who will complete discharge teaching/instructions with patient when patient and her daughter are ready to go.
--- NOTE | 2018-04-18 15:38 | PC.NURSE ---
Patient felt ready to go after walking in halls with her daughter. discharge instructions and home care handout reviewed with patient and her daughter Jayshree. aJyshree states that patient has a follow up appointment with her oncologist at already scheduled for Thursday. Patient and daughter instructed to return to ER or seek care for decreased mental status, continued fevers higher than 101.5, or nausea/vomiting. Patient encouraged to drink plenty of water. Patient and daughter waiting for [employer] to take her out via wheelchair at this time.
== END 2018-04-18 16:00 | disposition home or self-care (01) ==
LOC: ED 19:28 → AC 19:32
PROVIDERS: Admitting Provider Internal Medicine; Emergency Provider Emergency Medicine; Family Provider Internal Medicine; PCP Internal Medicine; Visit Provider Internal Medicine
DX: R50.9 Fever, unspecified (principal); C71.9 Malignant neoplasm of brain, unspecified; E11.9 Type 2 diabetes mellitus without complications; R10.13 Epigastric pain; R63.4 Abnormal weight loss
CPT/HCPCS: 36415; 36591; 70450; 71045; 80053; 81001; 82962; 83036; 83605; 83690; 84145; 85025; 85610; 85730; 87040; 93970; 96360; 96361; 99283; 99285; G0378; J1650

== ENCOUNTER → 2018-04-29 11:13 | Outpatient (CLI) | payer MEDICARE, OTHER, SELFPAY ==
[2018-04-17 20:04] VITALS: BMI 24.0
[2018-04-29 12:32] LABS: Alanine Aminotransferase 24 IU/L (9-52); Albumin 3.8 g/dL (3.5-5.0); Albumin Globulin Ratio 1.4 (1.0-2.8); Alkaline Phosphatase 30 U/L (38-126); Aspartate Aminotransferase 23 IU/L (14-36); BUN Creatinine Ratio 23.3 (6-22); Bilirubin Total 0.9 mg/dL (0.2-1.3); Blood Urea Nitrogen 14 mg/dL (7-17); Calcium 9.3 mg/dL (8.4-10.2); Carbon Dioxide 34 mmol/L (22-32); Chloride 101 mmol/L (98-107); Estimated Glomerular Filt Rate > 60.0 mL/min (>60); Globulin 2.7 g/dL (1.7-4.1); Glucose 191 mg/dL (80-110); HEMOLYSIS < 15 (0-50); Potassium 4.4 mmol/L (3.4-5.1); Sodium 140 mmol/L (137-145); Total Protein 6.5 g/dL (6.3-8.2)
[2018-04-29 12:34] LABS: Add Manual Diff / Slide Review NO; Basophils Percent Auto 0.4 % (0-2); Eosinophils Percent Auto 0.7 % (2-4); Hematocrit 32.8 % (36-46); Hemoglobin 11.4 g/dL (12.0-16.0); Lymphocytes Percent Auto 12.9 % (25-40); Mean Corpuscular HGB Conc 34.9 % (30-36); Mean Corpuscular Hemoglobin 33.5 PG (26-34); Mean Corpuscular Volume 96.1 fL (80-100); Monocytes Percent Auto 7.9 % (3-14); Neutrophils Absolute Auto 2600 /uL (3000-5900); Neutrophils Percent Auto 78.1 % (50-75); Platelet Count 108 X10^3/uL (150-400); Red Blood Cell Count 3.42 X10^6/uL (4.0-5.2); Red Cell Distribution Width 15.3 % (11.6-14.8); White Blood Cell Count 3.3 X10^3/uL (4.5-11.0)
== END ==
PROVIDERS: PCP Internal Medicine; Visit Provider Nurse Practitioner
DX: C71.9 Malignant neoplasm of brain, unspecified (principal)
CPT/HCPCS: 36415; 80053; 85025

== ENCOUNTER → 2018-05-06 10:57 | Outpatient (CLI) | payer MEDICARE, OTHER, SELFPAY ==
[2018-04-17 20:04] VITALS: BMI 24.0
[2018-05-06 12:09] LABS: Add Manual Diff / Slide Review NO; Basophils Percent Auto 0.3 % (0-2); Eosinophils Percent Auto 1.2 % (2-4); Hematocrit 31.8 % (36-46); Lymphocytes Percent Auto 13.9 % (25-40); Mean Corpuscular HGB Conc 34.7 % (30-36); Mean Corpuscular Hemoglobin 33.5 PG (26-34); Mean Corpuscular Volume 96.4 fL (80-100); Monocytes Percent Auto 7.9 % (3-14); Neutrophils Absolute Auto 2000 /uL (3000-5900); Neutrophils Percent Auto 76.7 % (50-75); Platelet Count 107 X10^3/uL (150-400); Red Cell Distribution Width 15.5 % (11.6-14.8); White Blood Cell Count 2.7 X10^3/uL (4.5-11.0)
[2018-05-06 12:25] LABS: Alanine Aminotransferase 25 IU/L (9-52); Albumin 3.8 g/dL (3.5-5.0); Albumin Globulin Ratio 1.7 (1.0-2.8); Alkaline Phosphatase 33 U/L (38-126); Aspartate Aminotransferase 22 IU/L (14-36); BUN Creatinine Ratio 23.3 (6-22); Bilirubin Total 1.1 mg/dL (0.2-1.3); Blood Urea Nitrogen 14 mg/dL (7-17); Calcium 9.4 mg/dL (8.4-10.2); Carbon Dioxide 30 mmol/L (22-32); Chloride 102 mmol/L (98-107); Estimated Glomerular Filt Rate > 60.0 mL/min (>60); Globulin 2.3 g/dL (1.7-4.1); Glucose 191 mg/dL (80-110); HEMOLYSIS < 15 (0-50); Potassium 4.2 mmol/L (3.4-5.1); Sodium 141 mmol/L (137-145); Total Protein 6.1 g/dL (6.3-8.2)
== END ==
PROVIDERS: PCP Internal Medicine; Visit Provider Nurse Practitioner
DX: C71.9 Malignant neoplasm of brain, unspecified (principal)
CPT/HCPCS: 36415; 80053; 85025

== ENCOUNTER → 2018-05-13 10:21 | Outpatient (CLI) | payer MEDICARE, OTHER, SELFPAY ==
[2018-04-17 20:04] VITALS: BMI 24.0
[2018-05-13 11:26] LABS: Add Manual Diff / Slide Review NO; Basophils Percent Auto 0.3 % (0-2); Eosinophils Percent Auto 1.8 % (2-4); Hematocrit 30.4 % (36-46); Hemoglobin 10.7 g/dL (12.0-16.0); Lymphocytes Percent Auto 16.1 % (25-40); Mean Corpuscular HGB Conc 35.3 % (30-36); Mean Corpuscular Hemoglobin 33.5 PG (26-34); Mean Corpuscular Volume 94.8 fL (80-100); Monocytes Percent Auto 10.1 % (3-14); Neutrophils Absolute Auto 1500 /uL (3000-5900); Neutrophils Percent Auto 71.7 % (50-75); Platelet Count 128 X10^3/uL (150-400); Red Blood Cell Count 3.21 X10^6/uL (4.0-5.2); White Blood Cell Count 2.1 X10^3/uL (4.5-11.0)
[2018-05-13 11:55] LABS: Alanine Aminotransferase 23 IU/L (9-52); Albumin 3.8 g/dL (3.5-5.0); Albumin Globulin Ratio 1.6 (1.0-2.8); Alkaline Phosphatase 38 U/L (38-126); Aspartate Aminotransferase 18 IU/L (14-36); BUN Creatinine Ratio 23.3 (6-22); Bilirubin Total 1.4 mg/dL (0.2-1.3); Blood Urea Nitrogen 14 mg/dL (7-17); Calcium 9.4 mg/dL (8.4-10.2); Carbon Dioxide 30 mmol/L (22-32); Chloride 103 mmol/L (98-107); Estimated Glomerular Filt Rate > 60.0 mL/min (>60); Globulin 2.4 g/dL (1.7-4.1); Glucose 169 mg/dL (80-110); HEMOLYSIS < 15 (0-50); Potassium 3.9 mmol/L (3.4-5.1); Sodium 140 mmol/L (137-145); Total Protein 6.2 g/dL (6.3-8.2)
== END ==
PROVIDERS: Family Provider Internal Medicine; PCP Internal Medicine; Visit Provider Nurse Practitioner
DX: C71.9 Malignant neoplasm of brain, unspecified (principal)
CPT/HCPCS: 36415; 80053; 85025

== ENCOUNTER → 2018-05-20 11:00 | Outpatient (CLI) | payer MEDICARE, OTHER, SELFPAY ==
[2018-05-20 12:06] LABS: Add Manual Diff / Slide Review NO; Basophils Percent Auto 0.4 % (0-2); Eosinophils Percent Auto 1.4 % (2-4); Hematocrit 29.7 % (36-46); Hemoglobin 10.4 g/dL (12.0-16.0); Lymphocytes Percent Auto 15.8 % (25-40); Mean Corpuscular HGB Conc 35.2 % (30-36); Mean Corpuscular Hemoglobin 33.2 PG (26-34); Mean Corpuscular Volume 94.4 fL (80-100); Monocytes Percent Auto 9.8 % (3-14); Neutrophils Absolute Auto 1800 /uL (3000-5900); Neutrophils Percent Auto 72.6 % (50-75); Platelet Count 166 X10^3/uL (150-400); Red Blood Cell Count 3.14 X10^6/uL (4.0-5.2); Red Cell Distribution Width 15.2 % (11.6-14.8); White Blood Cell Count 2.4 X10^3/uL (4.5-11.0)
[2018-05-20 12:45] LABS: Alanine Aminotransferase 27 IU/L (9-52); Albumin 3.9 g/dL (3.5-5.0); Albumin Globulin Ratio 1.6 (1.0-2.8); Alkaline Phosphatase 37 U/L (38-126); Aspartate Aminotransferase 22 IU/L (14-36); Blood Urea Nitrogen 12 mg/dL (7-17); Calcium 9.4 mg/dL (8.4-10.2); Carbon Dioxide 27 mmol/L (22-32); Chloride 104 mmol/L (98-107); Estimated Glomerular Filt Rate > 60.0 mL/min (>60); Globulin 2.4 g/dL (1.7-4.1); Glucose 202 mg/dL (80-110); HEMOLYSIS < 15 (0-50); Potassium 3.9 mmol/L (3.4-5.1); Sodium 142 mmol/L (137-145); Total Protein 6.3 g/dL (6.3-8.2)
== END ==
PROVIDERS: Family Provider Internal Medicine; PCP Internal Medicine; Visit Provider Nurse Practitioner
DX: C71.9 Malignant neoplasm of brain, unspecified (principal)
CPT/HCPCS: 36415; 80053; 85025

== ENCOUNTER → 2018-05-27 12:56 | Outpatient (CLI) | payer MEDICARE, OTHER, SELFPAY ==
[2018-05-27 13:39] LABS: Add Manual Diff / Slide Review NO; Basophils Percent Auto 0.7 % (0-2); Eosinophils Percent Auto 1.5 % (2-4); Hematocrit 31.7 % (36-46); Hemoglobin 10.9 g/dL (12.0-16.0); Mean Corpuscular HGB Conc 34.3 % (30-36); Mean Corpuscular Hemoglobin 32.8 PG (26-34); Mean Corpuscular Volume 95.6 fL (80-100); Monocytes Percent Auto 11.7 % (3-14); Neutrophils Absolute Auto 1700 /uL (3000-5900); Neutrophils Percent Auto 69.1 % (50-75); Platelet Count 195 X10^3/uL (150-400); Red Blood Cell Count 3.32 X10^6/uL (4.0-5.2); Red Cell Distribution Width 15.1 % (11.6-14.8); White Blood Cell Count 2.5 X10^3/uL (4.5-11.0)
[2018-05-27 14:22] LABS: Alanine Aminotransferase 25 IU/L (9-52); Albumin 4.1 g/dL (3.5-5.0); Albumin Globulin Ratio 1.6 (1.0-2.8); Alkaline Phosphatase 40 U/L (38-126); Aspartate Aminotransferase 26 IU/L (14-36); BUN Creatinine Ratio 21.7 (6-22); Blood Urea Nitrogen 13 mg/dL (7-17); Calcium 9.3 mg/dL (8.4-10.2); Carbon Dioxide 30 mmol/L (22-32); Chloride 100 mmol/L (98-107); Estimated Glomerular Filt Rate > 60.0 mL/min (>60); Globulin 2.5 g/dL (1.7-4.1); Glucose 204 mg/dL (80-110); HEMOLYSIS 26 (0-50); Potassium 4.4 mmol/L (3.4-5.1); Sodium 139 mmol/L (137-145); Total Protein 6.6 g/dL (6.3-8.2)
== END ==
PROVIDERS: PCP Internal Medicine; Visit Provider Nurse Practitioner
DX: C71.9 Malignant neoplasm of brain, unspecified (principal)
CPT/HCPCS: 36415; 80053; 85025